=== PATIENT | female | born 1985 | race Caucasian/White ===

== ENCOUNTER → 2017-03-23 | Outpatient (REF) ==
[~2017-03-23] MED LIST: ADVAIR 250/28 DISKUS IH; ALBUTEROL0.09 MG/A1 IH; ALDOMET 250MG250 MG PO; BIRTH CONTROL; BIRTH CONTROL PILLS; COLACE100 MG PO; DHA; IBU600 MG PO; IBUPROFEN; MIRENA52 MG IU; PERCOCET 325 MG1 TA2 PO; PRENATAL1 TA1 PO; PRENATAL1 TA7 PO; PROAIR HFA0.09 MG/AC IH; TYLENOL 500MG500 MG PO
== END ==
LOC: WSOH 10:24
DX: Z02.89 Encounter for other administrative examinations (principal)

== ENCOUNTER → 2017-05-27 | Outpatient (REF) | LOC: WSOH 17:15 | DX: Z02.89 Encounter for other administrative examinations (principal) ==

== ENCOUNTER → 2018-04-20 | Outpatient (CLI) | payer OTHER | LOC: SUN.DIA 10:30 | DX: Z79.4 Long term (current) use of insulin (principal); O24.434 Gestational diabetes mellitus in the puerperium, insulin controlled | CPT/HCPCS: G0108 ==

== ENCOUNTER → 2018-05-12 | Outpatient (CLI) | payer OTHER | LOC: SUN.DIA 07:43 | DX: O24.434 Gestational diabetes mellitus in the puerperium, insulin controlled (principal) | CPT/HCPCS: G0108 ==

== ENCOUNTER → 2018-05-19 | Outpatient (CLI) | payer OTHER | LOC: SUN.DIA 15:26 | DX: O24.434 Gestational diabetes mellitus in the puerperium, insulin controlled (principal) | CPT/HCPCS: G0108 ==

== ENCOUNTER 2018-06-23 06:58 | Inpatient (IN) | payer OTHER ==
[2018-06-23] VITALS (33 sets, daily range): BP systolic 113–146; BP diastolic 55–99; PULSE 60–79; TEMP 97.3–98.3
[~2018-06-23] VITALS: Ht 175.3 cm; Wt 113.6 kg
[~2018-06-23 06:58] MED LIST changes: +COLACE 100100 MG/CAP PO; +IRON 27 MG PO; +NORMODYNE100 MG PO
[2018-06-23 08:14] LABS: BASO # 0.1 (0.0-0.2); BASO % 0.5 % (0.0-2.0); EOS # 0.2 (0.0-0.7); GRAN % 71.7 % (42.2-75.2); HEMOGLOBIN 11.5 g/dl (12.5-16.0); LYMPH # 2.6 (1.2-3.4); LYMPH % 16.9 % (20.0-51.0); MEAN CELL VOLUME 85 fl (80.0-100.0); MEAN CORPUSCULAR HEMOGLOBIN 28 pg (27.0-31.0); MEAN CORPUSCULAR HGB CONC 33 g/dl (33.0-37.0); MEAN PLATELET VOLUME 11.3 fl (7.4-10.4); MONO # 1.4 (0.1-0.6); MONO % 8.8 % (1.7-9.3); PLATELET COUNT 242 K/mm3 (130-400); RED BLOOD COUNT 4.13 M/mm3 (4.10-5.30); REDCELL DISTRIBUTION WIDTH-CV 16.4 % (11.5-14.5)
[2018-06-23 08:17] LABS: HEMATOCRIT 35.2 % (37.0-47.0)
[2018-06-24 01:07] VITALS: BP 130/83; PULSE 70; TEMP 97.5
[2018-06-24 04:38] VITALS: BP 124/64; PULSE 69; TEMP 97.7
[2018-06-24 07:50] VITALS: BP 148/95; PULSE 83; TEMP 97.7
[2018-06-24] MEDS ORDERED: PERCOCET 325 MG1 TA2 PO (08:12)
[2018-06-24] MEDS ORDERED: MOTRIN 600600 MG/TAB PO (08:12)
[2018-06-24 14:00] VITALS: BP 134/78; PULSE 79; TEMP 97.6
== END 2018-06-24 16:30 | disposition home or self-care (01) | DRG 807 ==
LOC: LDR 07:08 → OB 07:13 → LDR 07:13 → OB 16:00
PROVIDERS: Obstetrics & Gynecology
PROC: 10E0XZZ Delivery of Products of Conception, External Approach (ICD-10-PCS; principal; 2018-06-23)
PROC: 0KQM0ZZ Repair Perineum Muscle, Open Approach (ICD-10-PCS; 2018-06-23)
DX: O24.420 Gestational diabetes mellitus in childbirth, diet controlled (principal); Z37.0 Single live birth; Z3A.39 39 weeks gestation of pregnancy; O13.4 Gestational [pregnancy-induced] hypertension without significant proteinuria, complicating childbirth; O69.81X0 Labor and delivery complicated by cord around neck, without compression, not applicable or unspecified; O70.1 Second degree perineal laceration during delivery; J45.909 Unspecified asthma, uncomplicated
CPT/HCPCS: J2590; J7120

== ENCOUNTER → 2020-01-25 | Outpatient (CLI) | payer OTHER ==
[~2020-01-25] MED LIST changes: +MOTRIN 600600 MG/TAB PO
== END ==
LOC: COL.RAD 14:52
DX: R07.89 Other chest pain (principal)